=== PATIENT | female | born 1965 | race Caucasian/White ===

== ENCOUNTER 2017-02-03 14:14 | Inpatient (IN) | payer OTHER ==
[2017-02-03] VITALS (7 sets, daily range): BP systolic 83–105; BP diastolic 53–62; PULSE 88–111; RESP 15–18; TEMP 97.7; O2SAT 96–100
[~2017-02-03] VITALS: Ht 157.5 cm; Wt 46.4 kg
[~2017-02-03 14:14] MED LIST: ACYC400T PO; ATEN-102 PO; CALC0.25 PO; LANS30 PO
--- NOTE | 2017-02-03 18:52 | PD ---
HPI Chief Complaint: GI Complaint Time Seen by Provider: 18:33 Travel History International Travel<30 days: No Contact w/Intl Traveler<30days: No Traveled to known affect area: No History of Present Illness HPI 52yo F with PMH of ulcerative colitis/croh's disease and hemophagocytic lymphocytosis histiocytosis syndrome presents to the ED with c/o generalized weakness and hypotension for a few days. States she has not been eating/ drinking well for 2 weeks and has been nauseous. Pt has had total colectomy and has had looser stools than normal. Denies any fever, chest pain, sob, vomiting. Pt had urinary complaints a few days ago and treated herself with over the counter UTI medication and now symptoms has resolved. PFSH Past Medical History Arthritis: No Autoimmune Disease: Yes (LUPUS) Cancer: No Cardiovascular Problems: No Chemotherapy: Yes (2012) Diminished Hearing: No Endocrine: No Gastrointestinal Disorders: Yes GERD: Yes Genitourinary: No Hiatal Hernia: Yes Hypertension: Yes Implanted Vascular Access Dvce: Yes Musculoskeletal: Yes (generalized weakness) Neurologic: No Psychiatric: No Reproductive: No Respiratory: No Renal Failure: Yes Ulcer: Yes ?: Not LMP: MENOPAUSAL Past Surgical History Abdominal Surgery: Yes (colon resection) Cardiac Surgery: Yes Ear Surgery: No Eye Surgery: No Gynecologic Surgery: No Oral Surgery: No Pacemaker: No Thoracic Surgery: Yes Tonsillectomy: Yes Other Surgery: Yes (COLON RESECTION, WITH INTERNAL POUCH) Social History Alcohol Use: No Tobacco Use: No Substance Use: No Allergies-Medications (Allergen,Severity, Reaction): Coded Allergies: Ceclor (Verified Allergy, Severe, Rash, 02/03/17) Floxcin (Verified Allergy, Severe, Confusion, 02/03/17) Sulfa (Verified Allergy, Severe, Nausea/Vomiting, 02/03/17) Reported Meds & Prescriptions Reported Meds & Active Scripts Active Reported Osphena (Ospemifene) 60 Mg Tab 60 Mg PO HS Lisinopril 40 Mg Tab 40 Mg PO HS Calcitriol 0.25 Mcg Cap 0.25 Mcg PO DAILY Atenolol 50 Mg Tab 50 Mg PO HS Review of Systems Except as stated in HPI: all other systems reviewed are Neg Physical Exam Narrative GENERAL: 52yo F flail appearing female. SKIN: Warm and dry. HEAD: Atraumatic. Normocephalic. EYES: Pupils equal and round. No scleral icterus. No injection or drainage. ENT: Throat clear. NECK: Trachea midline. No JVD. CARDIOVASCULAR: Mildly tachycardic. Hypotensive. No murmur appreciated. RESPIRATORY: No accessory muscle use. Clear to auscultation. Breath sounds equal bilaterally. GASTROINTESTINAL: Abdomen soft, non-tender, nondistended. No rebound tenderness or guarding. +Plug to ileum with mild erythema surrounding plug. No purulent discharge or ttp. MUSCULOSKELETAL: No obvious deformities. No clubbing. No cyanosis. No edema. NEUROLOGICAL: Awake and alert. No obvious cranial nerve deficits. Motor grossly within normal limits. Normal speech. PSYCHIATRIC: Appropriate mood and affect; insight and judgment normal. Data Data Last Documented VS Vital Signs Date Time Temp Pulse Resp B/P Pulse Ox O2 Delivery O2 Flow Rate FiO2 02/03/17 20:50 100 16 96/55 98 02/03/17 19:53 Room Air 02/03/17 14:31 97.7 Orders Sodium Chlor 0.9% 1000 Ml Inj (Ns 1000 M (02/03/17 19:00) Complete Blood Count With Diff (02/03/17 18:46) Comprehensive Metabolic Panel (02/03/17 18:46) Magnesium (Mg) (02/03/17 18:46) Electrocardiogram (02/03/17 ) Ondansetron Inj (Zofran Inj) (02/03/17 19:00) Blood Culture (02/03/17 18:46) Lactic Acid Sepsis Protocol (02/03/17 18:46) Urinalysis - C+S If Indicated (02/03/17 18:46) Admit To Inpatient (02/03/17 ) Vital Signs (Adult) Q4H (02/03/17 21:39) Activity Oob With Assistance (02/03/17 21:39) Outside Machinist Apprentice / Telemetry .CONTINUOUS (02/03/17 21:39) Diet Heart Healthy (02/04/17 Breakfast) Sodium Chlor 0.9% 1000 Ml Inj (Ns 1000 M (02/03/17 21:39) Sodium Chloride 0.9% Flush (Ns Flush) (02/03/17 21:45) Sodium Chloride 0.9% Flush (Ns Flush) (02/04/17 09:00) Acetaminophen (Tylenol) (02/03/17 21:45) Ondansetron Inj (Zofran Inj) (02/03/17 21:45) Bisacodyl Supp (Dulcolax Supp) (02/03/17 21:45) Sennosides (Senokot) (02/03/17 21:45) Basic Metabolic Panel (Bmp) (02/04/17 06:00) Complete Blood Count With Diff (02/04/17 06:00) Resp Oxygen Jono C Titrat 1-4 L (02/03/17 ) Naloxone Inj (Narcan Inj) (02/03/17 21:45) Inpatient Certification (02/03/17 ) Admit Order (Ed Use Only) (02/03/17 21:41) Labs Laboratory Tests Test 02/03/17 02/03/17 20:20 21:15 White Blood Count 9.6 TH/MM3 Red Blood Count 3.93 MIL/MM3 Hemoglobin 10.8 GM/DL Hematocrit 32.0 % Mean Corpuscular Volume 81.4 FL Mean Corpuscular Hemoglobin 27.4 PG Mean Corpuscular Hemoglobin 33.6 % Concent Red Cell Distribution Width 16.1 % Platelet Count 205 TH/MM3 Mean Platelet Volume 9.0 FL Neutrophils (%) (Auto) 69.9 % Lymphocytes (%) (Auto) 21.1 % Monocytes (%) (Auto) 6.0 % Eosinophils (%) (Auto) 0.5 % Basophils (%) (Auto) 2.5 % Neutrophils # (Auto) 6.8 TH/MM3 Lymphocytes # (Auto) 2.0 TH/MM3 Monocytes # (Auto) 0.6 TH/MM3 Eosinophils # (Auto) 0.0 TH/MM3 Basophils # (Auto) 0.2 TH/MM3 CBC Comment DIFF FINAL Differential Comment Sodium Level 132 MEQ/L Potassium Level 5.4 MEQ/L Chloride Level 109 MEQ/L Carbon Dioxide Level 11.0 MEQ/L Anion Gap 12 MEQ/L Blood Urea Nitrogen 59 MG/DL Creatinine 2.60 MG/DL Estimat Glomerular Filtration 19 ML/MIN Rate Random Glucose 92 MG/DL Lactic Acid Level 0.9 mmol/L Calcium Level 8.1 MG/DL Magnesium Level 2.3 MG/DL Total Bilirubin 0.8 MG/DL Aspartate Amino Transf 36 U/L (AST/SGOT) Alanine Aminotransferase 44 U/L (ALT/SGPT) Alkaline Phosphatase 95 U/L Total Protein 8.0 GM/DL Albumin 3.2 GM/DL Urine Color STRAW Urine Turbidity CLEAR Urine pH 6.0 Urine Specific [place] 1.010 Urine Protein 30 mg/dL Urine Glucose (UA) NEG mg/dL Urine Ketones NEG mg/dL Urine Occult Blood MOD Urine Nitrite NEG Urine Bilirubin NEG Urine Leukocyte Esterase NEG Urine RBC 3-5 /hpf Urine WBC 0-2 /hpf Urine Squamous Epithelial 6-8 /hpf Cells Urine Bacteria RARE /hpf Microscopic Urinalysis Comment CULT NOT INDICATED MDM Medical Decision Making Medical Screen Exam Complete: Yes Emergency Medical Condition: Yes Interpretation(s) EKG: Sinus tachycardia at 102bpm. Normal axis. Poor baseline. No ST segment elevation or depression. QTc 411ms. Differential Diagnosis Dehydration vs. electrolyte abnormality vs. UTI Narrative Course 52yo F with generalized weakness and hypotension. Pt was initially tachycardic at 111bpm and hypotensive at 87/60 and responded to NS IVF. HR is now 88 and BP is 94/60. Pt has been having stool that is more loose than normal. Labs reviewed, no leukocytosis. BUN/creatinine elevated at 59/2.60. Pt's last creatinine was 1.26 in 2013. Lactic acid is 0.9. UA showed moderate blood. + Squamous cells. Culture not indicated. Will admit pt for JONO and dehydration. Discussed with [facility] hospitalist and admitted to Dr. Cruz. Diagnosis Primary Impression: JONO (acute kidney injury) Additional Impression: Dehydration Admitting Information Admitting Physician Requests: Admit Aubree Riggins DO Feb 03, 2017 18:52
[2017-02-03] MEDS ORDERED: SODIUM CHLOR 0.9% 1000 ML INJ 1,000 ML IV ONE (19:00)
[2017-02-03] MEDS ORDERED: ONDANSETRON HCL 4 MG/2 ML VIAL IV PUSH ONE (19:00)
[2017-02-03] MEDS ORDERED: ATEN50TA PO (19:01)
[2017-02-03] MEDS ORDERED: OSPE1TAB PO (19:01)
[2017-02-03] MEDS ORDERED: CALC0.25 PO (19:01)
[2017-02-03] MEDS ORDERED: LISI40TA PO (19:01)
[2017-02-03 20:44] LABS: AUTOMATED NEUTROPHIL # 6.8 TH/MM3 (1.8-7.7); BASOPHIL # 0.2 TH/MM3 (0-0.2); BASOPHIL % 2.5 % (0.0-2.0); EOSINOPHIL % 0.5 % (0.0-4.0); HEMO FLAGS DIFF FINAL; LYMPH % 21.1 % (9.0-44.0); MEAN CELL VOLUME 81.4 FL (80.0-100.0); MEAN CORPUSCULAR HEMOGLOBIN 27.4 PG (27.0-34.0); MEAN CORPUSCULAR HGB CONC 33.6 % (32.0-36.0); NEUT % 69.9 % (16.0-70.0); PLATELET COUNT 205 TH/MM3 (150-450); RED BLOOD COUNT 3.93 MIL/MM3 (4.00-5.30); RED CELL DISTRIBUTION WIDTH 16.1 % (11.6-17.2); WHITE BLOOD COUNT 9.6 TH/MM3 (4.0-11.0)
[2017-02-03 20:52] LABS: CHLORIDE 109 MEQ/L (98-107); SODIUM (NA) 132 MEQ/L (136-145)
[2017-02-03 20:56] LABS: ANION GAP 12 MEQ/L (5-15); BLOOD UREA NITROGEN 59 MG/DL (7-18); MAGNESIUM 2.3 MG/DL (1.5-2.5)
[2017-02-03 20:59] LABS: ALT (GPT) 44 U/L (10-53); AST (GOT) 36 U/L (15-37); GLOMERULAR FILTRATION RATE 19 ML/MIN (>89)
[2017-02-03 21:01] LABS: TOTAL BILIRUBIN ADULT 0.8 MG/DL (0.2-1.0)
[2017-02-03 21:02] LABS: ALKALINE PHOSPHATASE 95 U/L (45-117)
[2017-02-03 21:07] LABS: POTASSIUM 5.4 MEQ/L (3.5-5.1)
[2017-02-03 21:25] LABS: GLUCOSE,URINE NEG (NEG); KETONE, URINE NEG (NEG); NITRITE,URINE NEG (NEG)
[2017-02-03 21:26] LABS: BLOOD, URINE MOD (NEG)
[2017-02-03 21:31] LABS: URINE COLOR STRAW (YELLW/STRAW)
[2017-02-03 21:32] LABS: BACTERIA, URINE RARE /hpf; COMMENT (UR) CULT NOT INDICATED; CULTURE IF INDICATED CULT NOT INDICATED; WBC, URINE 0-2 /hpf (0-5)
[2017-02-03] MEDS ORDERED: SODIUM CHLOR 0.9% 1000 ML INJ 1,000 ML IV SCH (21:39)
[2017-02-03] MEDS ORDERED: ACETAMINOPHEN 325 MG TAB PO PRN (21:45)
[2017-02-03] MEDS ORDERED: ONDANSETRON HCL 4 MG/2 ML VIAL IVP PRN (21:45)
[2017-02-03] MEDS ORDERED: SODIUM CHLORIDE 0.9% FLUSH 5 ML FLUSH FLUSH PRN (21:45)
[2017-02-03] MEDS ORDERED: NALOXONE HCL 0.4 MG/ML AMP IV PRN (21:45)
[2017-02-03] MEDS ORDERED: SENNOSIDES 8.6 MG TAB PO PRN (21:45)
[2017-02-03] MEDS ORDERED: BISACODYL 10 MG SUPP PR PRN (21:45)
[2017-02-04] VITALS (13 sets, daily range): BP systolic 82–114; BP diastolic 52–73; PULSE 92–101; RESP 16–18; TEMP 96.7–97.9; O2SAT 95–100
[2017-02-04 07:02] LABS: AUTOMATED NEUTROPHIL # 5.2 TH/MM3 (1.8-7.7); BASOPHIL % 0.5 % (0.0-2.0); EOSINOPHIL # 0.1 TH/MM3 (0-0.4); EOSINOPHIL % 1.6 % (0.0-4.0); HEMATOCRIT 25.8 % (35.0-46.0); HEMO FLAGS DIFF FINAL; LYMPH % 20.8 % (9.0-44.0); LYMPHOCYTE # 1.6 TH/MM3 (1.0-4.8); MEAN CELL VOLUME 81.8 FL (80.0-100.0); MEAN CORPUSCULAR HEMOGLOBIN 27.6 PG (27.0-34.0); MEAN CORPUSCULAR HGB CONC 33.7 % (32.0-36.0); NEUT % 69.1 % (16.0-70.0); PLATELET COUNT 180 TH/MM3 (150-450); RED BLOOD COUNT 3.15 MIL/MM3 (4.00-5.30); RED CELL DISTRIBUTION WIDTH 15.8 % (11.6-17.2); WHITE BLOOD COUNT 7.5 TH/MM3 (4.0-11.0)
[2017-02-04 07:25] LABS: BICARBONATE 10.3 MEQ/L (21.0-32.0); POTASSIUM 4.4 MEQ/L (3.5-5.1)
[2017-02-04] MEDS: SODIUM CHLORIDE 0.9% FLUSH 5 ML FLUSH FLUSH SCH ×2 (08:57→22:22)
[2017-02-04] MEDS: HEPARIN SODIUM - SQ 10,000 UNITS/ML VIAL SQ SCH ×2 (08:57→22:21)
[2017-02-04] MEDS: CALCITRIOL 0.25 MCG CAP PO SCH (11:15)
[2017-02-04] MEDS: LACTATED RING IV SCH ×2 (11:15→21:00)
[2017-02-04] MEDS: DEXTROSE 5% IV SCH ×2 (11:15→21:00)
[2017-02-04] MEDS: SODIUM BICARBONATE IV SCH ×2 (11:15→21:00)
--- NOTE | 2017-02-04 15:02 | HHI.HP ---
HPI Service [facility] Primary Care Physician Benigno Bryan DO Admission Diagnosis Dehydration, JONO Diagnoses: Travel History International Travel<30 Days: No Contact w/Intl Traveler <30 Da: No Traveled to Known Affected Are: No History of Present Illness This is a 52-year-old female who has had a history of nonspecific chronic inflammatory bowel disease, possible ulcerative colitis versus Crohn's disease. She had a colectomy/proctectomy with a pouch formation. She uses a catheter to empty stool from small opening in her anterior abdominal wall. Also has a history hemophagocytic lymphocytosis histiocytosis syndrome, and of chronic kidney disease. She sees Dr. Qiu. She sees a marketing forecaster in [facility]. She came into the emergency department at [facility] with few days of generalized weakness. In fact her symptoms span to over 2 weeks. She is progressively weaker, lightheaded when standing, complaining of constant nausea, and her stool is more liquid than usual. She has not been eating or drinking considerable amounts for the last 2 weeks. She recently has some dysuria with vaginal discharge. She treated herself with over -the-counter Monistat and some pill that turned her urine orange. She was found to have an elevated creatinine of 2.6 from a baseline of 1.3 in 2014. She was also was found in sinus tachycardia. Her blood pressure was low. She was given IV fluids and felt better afterwards. She was seen by the undersigned earlier today in room 8303. She is alert oriented. She still feels weak. No pain. She says that she has a chronic allergy cough. No fever. She no longer had any dysuria or vaginal discharge. 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 difficile colitis in April 2013 Past Surgical History Colectomy/proctectomy Bowel pouch Reported Medications Reported Meds & Active Scripts Active Reported Osphena (Ospemifene) 60 Mg Tab 60 Mg PO HS Lisinopril 40 Mg Tab 40 Mg PO HS Calcitriol 0.25 Mcg Cap 0.25 Mcg PO DAILY Atenolol 50 Mg Tab 50 Mg PO HS Allergies: Coded Allergies: Ceclor (Verified Allergy, Severe, Rash, 02/03/17) Floxcin (Verified Allergy, Severe, Confusion, 02/03/17) Sulfa (Verified Allergy, Severe, Nausea/Vomiting, 02/03/17) Family History Father of pulmonary embolism, he also had heart disease and diabetes Mother is alive and she has diabetes and hypothyroidism 2 brothers of cancer, one of lymphoma followed by leukemia, and the other one with a cancer of unclear primary Social History No smoking, negative alcohol, no illicit drug use Physical Exam Vital Signs Vital Signs Date Time Temp Pulse Resp B/P Pulse Ox O2 Delivery O2 Flow Rate FiO2 02/04/17 12:00 97.4 93 16 94/60 100 02/04/17 10:22 97 21 02/04/17 09:45 96.7 95 16 96/67 100 02/04/17 09:21 102 16 104/56 95 02/04/17 07:30 16 02/04/17 07:30 97.9 100 16 82/56 100 Room Air 02/04/17 06:29 92 18 101/53 99 Room Air 02/04/17 05:49 92 18 99/56 99 Room Air 02/04/17 04:42 96 18 91/52 99 Room Air 02/04/17 02:55 97 18 93/56 99 Room Air 02/04/17 01:49 92 18 94/62 100 Room Air 02/03/17 23:55 98 18 105/62 100 Room Air 02/03/17 21:51 97 02/03/17 21:50 96 16 96/56 98 Room Air 02/03/17 20:50 100 16 96/55 98 02/03/17 19:53 18 02/03/17 19:53 88 18 94/60 97 Room Air 02/03/17 19:05 107 15 83/53 97 Physical Exam GENERAL: This is a well-nourished, well-developed patient, in no apparent distress. SKIN: No rashes, ecchymoses or lesions. Cool and dry. HEAD: Atraumatic. Normocephalic. No temporal or scalp tenderness. EYES: Pupils equal round and reactive. Extraocular motions intact. No scleral icterus. No injection or drainage. ENT: Nose without bleeding, purulent drainage or septal hematoma. Throat without erythema, tonsillar hypertrophy or exudate. Uvula midline. Airway patent. NECK: Trachea midline. No JVD or lymphadenopathy. Supple, nontender, no meningeal signs. CARDIOVASCULAR: Regular rate and rhythm without murmurs, gallops, or rubs. RESPIRATORY: Clear to auscultation. Breath sounds equal bilaterally. No wheezes , rales, or rhonchi. GASTROINTESTINAL: Abdomen soft, non-tender, nondistended. No hepato-splenomegaly , or palpable masses. No guarding. MUSCULOSKELETAL: Extremities without clubbing, cyanosis, or edema. No joint tenderness, effusion, or edema noted. No calf tenderness. Negative Homans sign bilaterally. NEUROLOGICAL: Awake and alert. Cranial nerves II through XII intact. Motor and sensory grossly within normal limits. Five out of 5 muscle strength in all muscle groups. Normal speech. Laboratory Laboratory Tests Test 02/03/17 02/03/17 02/04/17 20:20 21:15 06:40 White Blood Count 9.6 7.5 Red Blood Count 3.93 3.15 Hemoglobin 10.8 8.7 Hematocrit 32.0 25.8 Mean Corpuscular Volume 81.4 81.8 Mean Corpuscular Hemoglobin 27.4 27.6 Mean Corpuscular Hemoglobin 33.6 33.7 Concent Red Cell Distribution Width 16.1 15.8 Platelet Count 205 180 Mean Platelet Volume 9.0 8.7 Neutrophils (%) (Auto) 69.9 69.1 Lymphocytes (%) (Auto) 21.1 20.8 Monocytes (%) (Auto) 6.0 8.0 Eosinophils (%) (Auto) 0.5 1.6 Basophils (%) (Auto) 2.5 0.5 Neutrophils # (Auto) 6.8 5.2 Lymphocytes # (Auto) 2.0 1.6 Monocytes # (Auto) 0.6 0.6 Eosinophils # (Auto) 0.0 0.1 Basophils # (Auto) 0.2 0.0 CBC Comment DIFF FINAL DIFF FINAL Differential Comment Sodium Level 132 139 Potassium Level 5.4 4.4 Chloride Level 109 117 Carbon Dioxide Level 11.0 10.3 Anion Gap 12 12 Blood Urea Nitrogen 59 50 Creatinine 2.60 2.10 Estimat Glomerular Filtration 19 25 Rate Random Glucose 92 92 Lactic Acid Level 0.9 Calcium Level 8.1 7.6 Magnesium Level 2.3 Total Bilirubin 0.8 Aspartate Amino Transf 36 (AST/SGOT) Alanine Aminotransferase 44 (ALT/SGPT) Alkaline Phosphatase 95 Total Protein 8.0 Albumin 3.2 Urine Color STRAW Urine Turbidity CLEAR Urine pH 6.0 Urine Specific [place] 1.010 Urine Protein 30 Urine Glucose (UA) NEG Urine Ketones NEG Urine Occult Blood MOD Urine Nitrite NEG Urine Bilirubin NEG Urine Leukocyte Esterase NEG Urine RBC 3-5 Urine WBC 0-2 Urine Squamous Epithelial 6-8 Cells Urine Bacteria RARE Microscopic Urinalysis Comment CULT NOT INDICATED Date/Time Procedure Status Source Growth 02/04/17 11:11 Received Stool Stool Pending 02/03/17 20:26 Aerobic Blood Culture - Preliminary Resulted Blood Peripheral NO GROWTH IN 1 DAY 02/03/17 20:26 Anaerobic Blood Culture - Final Resulted Blood Peripheral QNS - SEE AEROBE REPORT Result Diagram: 02/04/17 0640 02/04/17 0640 Assessment and Plan Assessment and Plan Assessment Acute kidney injury on chronic kidney disease Dehydration Hypotension Weight loss Management Intravenous fluids Follow renal indices Consult GI for weight loss Follow electrolytes and replace as needed May need follow-up with Dr. Marcos regarding histiocytosis X Rule out C. difficile recurrence Contact isolation until all monitors resulted DVT prophylaxis Discussed with patient Discussed with nurse 40 minutes Den Moore MD Feb 04, 2017 15:02
[2017-02-04 18:42] LABS: C. DIFF EPI 027 PRESUMPTIVE NEGATIVE (NEGATIVE); C. DIFF TOXIN PCR NEGATIVE (NEGATIVE)
--- NOTE | 2017-02-04 20:00 | MB ---
cc: MALLORY SWIFT M.D. DATE OF CONSULTATION: 02/04/2017 DATE OF : [address] Cruz. REASON FOR REFERRAL Anemia, general weakness and dehydration, history of inflammatory bowel disease. Thank you for the consultation. HISTORY OF PRESENT ILLNESS A 52-year-old lady who has a history of Crohn's disease versus colitis. Apparently, initially she was diagnosed with ulcerative colitis. She had a total colectomy seven years ago with a pouch that she accesses for stool and the patient after that developed fistulas, and she was told that she may have Crohn's disease instead of ulcerative colitis. She had a [employer] test and she was told that the results were undetermined as far as Crohn's disease versus colitis. She used to take Imuran until about four years ago, she stopped taking it because her doctor told her that she might be doing okay and since then she had a few episodes of abdominal discomfort and weakness. She had upper endoscopies and a pouchoscopy but she did not have that for at least five years. She gets her care in [place], [place] and she does not have a local heater mechanic. The patient was in the emergency room with weakness and she was discharged, she came back, she is complaining of a little bit more loose stool from the pouch and found to be anemic. She stated that she was dehydrated even though she was not having any vomiting. She has some nausea and she was rehydrated yesterday and today and her creatinine was up to 0.6 with her baseline being at 1.3 on previous encounter. She had hypertension. Currently feels well, no significant complaint and she stated she thinks her loose bowel is related to rehydration. PAST MEDICAL HISTORY Significant for - 1. Inflammatory bowel disease, possible Crohn's disease versus ulcerative colitis. 2. Colectomy with ileostomy pouch created. 3. She also was diagnosed by Dr. Fransico Marcos with histiocytosis X. 4. Malnutrition. 5. Chronic weight loss. 6. Chronic low blood pressure. 7. Gallbladder disease. 8. Reflux symptoms. 9. Questionable hepatitis. 10. C. Diff, multiple episodes. 11. Questionable liver disease. 12. Chronic kidney disease. MEDICATIONS Reviewed in the chart. ALLERGIES CECLOR. FLOXACIN. SULFA. SOCIAL HISTORY No tobacco, drug or alcohol. FAMILY HISTORY Significant for pulmonary embolism, heart disease, diabetes, lymphoma. PHYSICAL EXAMINATION GENERAL: Alert, oriented, no acute distress at this time. VITAL SIGNS: Vital signs stable. HEENT: Pupils round and reactive to light. NECK: Supple. CHEST: Clear to auscultation and precaution. CARDIAC: Regular rate and rhythm. No murmur or gallop. ABDOMEN: Soft, nondistended, nontender. The site of the pouch looks normal. NEUROLOGIC: Intact without any limitation of movements or atrophy. PSYCHOLOGICAL: Appropriate. LABORATORY DATA White count 7.5, hemoglobin 8.7, down from 10.8 yesterday, platelets 180. Liver function tests are completely normal. BUN 50, creatinine 2.1. C. diff is pending. ASSESSMENT AND PLAN A 52-year-old lady who has possible inflammatory bowel disease, could be Crohn's disease, she is not taking any medication, she has some dehydration, could be viral illness. I recommended to her doing upper endoscopy and possible scoping of the pouch but the patient declined any procedure, she stated she does not want to have it done. We will wait for the C. Diff results. We will continue hydration. I emphasized to her the importance of the procedures to assess if she has active inflammatory bowel disease that requires treatment, but at this time she declined any procedure. We will continue supportive care. We will check her hemoglobin. If she drops her hemoglobin some more, we might need to do transfusion, and if she changes her mind we will be happy to do these procedures, otherwise we will continue supportive care. MD ANITA Iglesias/LEIF /6:12 PM /7:16 PM
[2017-02-04] MEDS ORDERED: OSPEMIFENE 60 MG PO SCH (21:00)
[2017-02-04] MEDS: ATENOLOL 50 MG TAB PO SCH (22:21)
[2017-02-05] VITALS (8 sets, daily range): BP systolic 97–121; BP diastolic 62–76; PULSE 87–116; RESP 16–20; TEMP 96–98.9; O2SAT 98–100
[2017-02-05 00:24] LABS: BLOOD, URINE TRACE (NEG); GLUCOSE,URINE NEG (NEG); KETONE, URINE NEG (NEG); NITRITE,URINE NEG (NEG); PH, URINE 5.5 (5.0-8.5)
[2017-02-05 00:47] LABS: URINE COLOR YELLOW (YELLW/STRAW)
[2017-02-05 00:48] LABS: BACTERIA, URINE MANY /hpf; MUCUS URINE OCC /lpf (OCC); SQUAMOUS EPITHELIAL CELL URINE 0-5 /hpf (0-5)
[2017-02-05 00:49] LABS: COMMENT (UR) CULTURE INDICATED; CULTURE IF INDICATED CULTURE INDICATED; HYALINE CAST, URINE 0-2 /lpf (RARE); RBC, URINE 0-3 /hpf (0-3); WBC, URINE 0-2 /hpf (0-5)
[2017-02-05] MEDS: SODIUM BICARBONATE IV SCH ×2 (04:56→17:05)
[2017-02-05] MEDS: DEXTROSE 5% IV SCH ×2 (04:56→17:05)
[2017-02-05] MEDS: LACTATED RING IV SCH ×2 (04:56→17:05)
[2017-02-05 06:31] LABS: AUTOMATED NEUTROPHIL # 4.1 TH/MM3 (1.8-7.7); BASOPHIL % 0.3 % (0.0-2.0); EOSINOPHIL # 0.1 TH/MM3 (0-0.4); EOSINOPHIL % 1.3 % (0.0-4.0); HEMATOCRIT 27.7 % (35.0-46.0); HEMO FLAGS DIFF FINAL; LYMPH % 32.3 % (9.0-44.0); LYMPHOCYTE # 2.3 TH/MM3 (1.0-4.8); MEAN CELL VOLUME 80.9 FL (80.0-100.0); MEAN CORPUSCULAR HEMOGLOBIN 26.8 PG (27.0-34.0); MEAN CORPUSCULAR HGB CONC 33.1 % (32.0-36.0); MONO % 8.1 % (0.0-8.0); PLATELET COUNT 209 TH/MM3 (150-450); RED BLOOD COUNT 3.42 MIL/MM3 (4.00-5.30); WHITE BLOOD COUNT 7.1 TH/MM3 (4.0-11.0)
[2017-02-05 06:51] LABS: BICARBONATE 16.5 MEQ/L (21.0-32.0); INDIRECT BILIRUBIN 0.5 MG/DL (0.0-0.8); POTASSIUM 3.6 MEQ/L (3.5-5.1); TOTAL BILIRUBIN ADULT 0.6 MG/DL (0.2-1.0)
--- NOTE | 2017-02-05 07:59 | EKG ---
Date Performed: 02/03/2017 Time Performed: 20:36:36 PTAGE: 52 years EKG: Sinus tachycardia Compared to the PREVIOUS TRACING sinus rate is slower Normal ECG except for rate PREVIOUS TRACIN04/17 00.16 DOCTOR: Eros Hernandez Interpretating Date/Time 02/05/2017 07:57:45
[2017-02-05] MEDS: SODIUM CHLORIDE 0.9% FLUSH 5 ML FLUSH FLUSH SCH ×2 (09:00→20:58)
[2017-02-05] MEDS: HEPARIN SODIUM - SQ 10,000 UNITS/ML VIAL SQ SCH ×2 (09:04→21:01)
[2017-02-05] MEDS: CALCITRIOL 0.25 MCG CAP PO SCH (09:04)
--- NOTE | 2017-02-05 15:41 | HHI.PR ---
Subjective History of Present Illness feels better less dizziness / less weakness appetite is ok No abd pain No fever or chills offers no other c/o Vitals/Results Intake & Output 02/04/17 02/04/17 02/05/17 15:00 23:00 07:00 Intake Total 1905 ml 810 ml 1072 ml Output Total 400 ml 600 ml 225 ml Balance 1505 ml 210 ml 847 ml Intake Oral 905 ml 480 ml 280 ml IV Total 1000 ml 330 ml 792 ml Output Urine Total 400 ml 600 ml 225 ml # Voids 0 # Bowel Movements 0 0 Vital Signs Vital Signs Date Time Temp Pulse Resp B/P Pulse Ox O2 Delivery O2 Flow Rate FiO2 02/05/17 12:00 96.0 96 16 101/70 99 02/05/17 08:45 98 21 02/05/17 08:00 97.3 87 16 106/76 100 02/05/17 04:00 97.0 94 16 97/64 99 02/05/17 00:00 98.9 112 16 109/66 99 02/04/17 20:00 97.5 101 18 110/73 100 02/04/17 19:21 95 21 02/04/17 16:00 97.2 96 18 114/67 95 CBC/BMP: 02/05/17 0456 02/05/17 0456 Lab Results Laboratory Tests Test 02/05/17 02/05/17 00:00 04:56 Urine Color YELLOW Urine Turbidity SLIGHT Urine pH 5.5 Urine Specific [place] 1.011 Urine Protein TRACE mg/dL Urine Glucose (UA) NEG mg/dL Urine Ketones NEG mg/dL Urine Occult Blood TRACE Urine Nitrite NEG Urine Bilirubin NEG Urine Leukocyte Esterase NEG Urine RBC 0-3 /hpf Urine WBC 0-2 /hpf Urine Squamous Epithelial 0-5 /hpf Cells Urine Bacteria MANY /hpf Urine Hyaline Casts 0-2 /lpf Urine Mucus OCC /lpf Microscopic Urinalysis Comment CULTURE INDICATED White Blood Count 7.1 TH/MM3 Red Blood Count 3.42 MIL/MM3 Hemoglobin 9.1 GM/DL Hematocrit 27.7 % Mean Corpuscular Volume 80.9 FL Mean Corpuscular Hemoglobin 26.8 PG Mean Corpuscular Hemoglobin 33.1 % Concent Red Cell Distribution Width 16.0 % Platelet Count 209 TH/MM3 Mean Platelet Volume 9.0 FL Neutrophils (%) (Auto) 58.0 % Lymphocytes (%) (Auto) 32.3 % Monocytes (%) (Auto) 8.1 % Eosinophils (%) (Auto) 1.3 % Basophils (%) (Auto) 0.3 % Neutrophils # (Auto) 4.1 TH/MM3 Lymphocytes # (Auto) 2.3 TH/MM3 Monocytes # (Auto) 0.6 TH/MM3 Eosinophils # (Auto) 0.1 TH/MM3 Basophils # (Auto) 0.0 TH/MM3 CBC Comment DIFF FINAL Differential Comment Sodium Level 141 MEQ/L Potassium Level 3.6 MEQ/L Chloride Level 113 MEQ/L Carbon Dioxide Level 16.5 MEQ/L Anion Gap 12 MEQ/L Blood Urea Nitrogen 32 MG/DL Creatinine 1.70 MG/DL Estimat Glomerular Filtration 31 ML/MIN Rate Random Glucose 84 MG/DL Calcium Level 8.2 MG/DL Total Bilirubin 0.6 MG/DL Direct Bilirubin 0.1 MG/DL Indirect Bilirubin 0.5 MG/DL Aspartate Amino Transf 25 U/L (AST/SGOT) Alanine Aminotransferase 35 U/L (ALT/SGPT) Alkaline Phosphatase 77 U/L Total Protein 7.0 GM/DL Albumin 2.9 GM/DL Microbiology Microbiology 02/05/17 Urine Culture, Received Pending Physical Exam General General Appearance: No Acute Distress, Comfortable, Malnourished Appearance Remarks thin built frail appearing female appears older than stated age Eyes Eye Exam: Pupils Equal, Sclera White, Extraocular Movement Intact Ears & Nose Ears & Nose Exam: Nasal Mucosa [place] Throat Throat Exam: Oral Mucosa [place] & Moist Neck Neck Exam: Neck Supple, Trachea Midline Pulmonary Resp Exam: Clear Bilaterally, Breath Sounds Equal, No Distress Cardiology CV Exam: Regular, Normal Sinus Rhythm Gastrointestinal/Abdomen GI Exam: Soft, Non-Tender, Bowel Sounds Present GI Remarks R sided abd stoma Integumentary Skin Exam: Warm, Dry Extremeties Extremities Exam: No Edema, Pedal Pulses Palpable Neurologic Neuro Exam: Alert, Awake, Oriented, Speech Clear, Moving All Extremities Psychiatric Psych Exam: Appropriate Responses PUD Prophylasis PUD Prophylaxis: Protonix Assessment/Plan Assessment/Plan ASSESSMENT , Dehydration . JONO/ CKD . Metabolic Acidosis . Inflammatory bowel disease, possible ulcerative colitis.s/p Colectomy with ileostomy pouch created. . Hx hemophagocytic Lymphohistiocytosis s/p chemo /XRT . Ch diarrhea . Malnutrition. . Chronic weight loss. . Chronic low blood pressure. . Gallbladder disease. . Reflux symptoms. PLAN IVF , cont hydration sodium bicarbonate GI input appreciated , pt refused EGD encourage po intake stool for c diff neg renal function is improving BB pepcid sq heparin for DVT prophylaxis ambulate am labs ss for d/c planning will f/u Jorgito Cruz MD Feb 05, 2017 15:41
--- NOTE | 2017-02-05 20:53 | HHI.GIFU ---
Subjective Remarks Comfortable in bed denies any pain denies any bleeding feeling better Objective Vitals I&O Vital Signs Date Time Temp Pulse Resp B/P Pulse Ox O2 Delivery O2 Flow Rate FiO2 02/05/17 20:00 98.1 116 20 121/72 99 02/05/17 19:28 100 21 02/05/17 16:00 96.4 96 16 110/62 100 02/05/17 12:00 96.0 96 16 101/70 99 02/05/17 08:45 98 21 02/05/17 08:00 97.3 87 16 106/76 100 02/05/17 04:00 97.0 94 16 97/64 99 02/05/17 00:00 98.9 112 16 109/66 99 I/O 02/04/17 02/04/17 02/04/17 02/05/17 02/05/17 02/05/17 07:00 15:00 23:00 07:00 15:00 23:00 Intake Total 1905 ml 810 ml 1072 ml 1200 ml Output Total 400 ml 600 ml 225 ml Balance 1505 ml 210 ml 847 ml 1200 ml Intake Oral 905 ml 480 ml 280 ml 1200 ml IV Total 1000 ml 330 ml 792 ml Output Urine Total 400 ml 600 ml 225 ml # Voids 0 5 # Bowel Movements 0 0 5 Laboratory Laboratory Tests Test 02/05/17 02/05/17 00:00 04:56 Urine Color YELLOW Urine Turbidity SLIGHT Urine pH 5.5 Urine Specific [place] 1.011 Urine Protein TRACE Urine Glucose (UA) NEG Urine Ketones NEG Urine Occult Blood TRACE Urine Nitrite NEG Urine Bilirubin NEG Urine Leukocyte Esterase NEG Urine RBC 0-3 Urine WBC 0-2 Urine Squamous Epithelial 0-5 Cells Urine Bacteria MANY Urine Hyaline Casts 0-2 Urine Mucus OCC Microscopic Urinalysis Comment CULTURE INDICATED White Blood Count 7.1 Red Blood Count 3.42 Hemoglobin 9.1 Hematocrit 27.7 Mean Corpuscular Volume 80.9 Mean Corpuscular Hemoglobin 26.8 Mean Corpuscular Hemoglobin 33.1 Concent Red Cell Distribution Width 16.0 Platelet Count 209 Mean Platelet Volume 9.0 Neutrophils (%) (Auto) 58.0 Lymphocytes (%) (Auto) 32.3 Monocytes (%) (Auto) 8.1 Eosinophils (%) (Auto) 1.3 Basophils (%) (Auto) 0.3 Neutrophils # (Auto) 4.1 Lymphocytes # (Auto) 2.3 Monocytes # (Auto) 0.6 Eosinophils # (Auto) 0.1 Basophils # (Auto) 0.0 CBC Comment DIFF FINAL Differential Comment Sodium Level 141 Potassium Level 3.6 Chloride Level 113 Carbon Dioxide Level 16.5 Anion Gap 12 Blood Urea Nitrogen 32 Creatinine 1.70 Estimat Glomerular Filtration 31 Rate Random Glucose 84 Calcium Level 8.2 Total Bilirubin 0.6 Direct Bilirubin 0.1 Indirect Bilirubin 0.5 Aspartate Amino Transf 25 (AST/SGOT) Alanine Aminotransferase 35 (ALT/SGPT) Alkaline Phosphatase 77 Total Protein 7.0 Albumin 2.9 Date/Time Procedure Status Source Growth 02/05/17 00:00 Urine Culture Received Urine Clean Catch Pending 02/04/17 11:11 - Final Complete Stool Stool NO ENTERIC PATHOGENS DETECTED BY PCR... 02/03/17 20:26 Aerobic Blood Culture - Preliminary Resulted Blood Peripheral NO GROWTH IN 2 DAYS 02/03/17 20:26 Anaerobic Blood Culture - Final Resulted Blood Peripheral QNS - SEE AEROBE REPORT Physical Exam HEENT: Normocephalic and throat is clear NECK: Neck is supple CHEST: Chest is clear to auscultation and percussion. CARDIAC: Regular rate and rhythm with no murmur gallop or rubs. ABDOMEN: Soft, nondistended, nontender; no hepatosplenomegaly; bowel sounds are present in all four quadrants. EXTREMITIES: No clubbing, cyanosis, or edema. SKIN: Normal; no rash; no jaundice. LEAD COATER: No focal deficits; alert and oriented times three. Assessment and Plan Plan Anemia multifactorial probably relating to chronic renal insufficiency, blood disorder, possibly short bowel, and most importantly malnutrition apparently the patient is an erratic eater and does not eat good and does not eat balanced meals She is over the fatigue that brought her in She denies any bleeding Bowel habits are stable and have not changed Patient advised to improve her intake and nutrition and to take nutritional supplements and multivitamins with minerals and iron supplementation Not much to add from a GI perspective at this point patient follow-up post discharge We will sign off Mayo Santana MD Feb 05, 2017 20:53
[2017-02-05] MEDS: ATENOLOL 50 MG TAB PO SCH (21:00)
[2017-02-06] VITALS: BP 95/60; PULSE 83; RESP 20; TEMP 98.4; O2SAT 100
[2017-02-06 04:00] VITALS: BP 94/54; PULSE 79; RESP 20; TEMP 96.7; O2SAT 99
[2017-02-06] MEDS: DEXTROSE 5% IV SCH (05:03)
[2017-02-06] MEDS: LACTATED RING IV SCH (05:03)
[2017-02-06] MEDS: SODIUM BICARBONATE IV SCH (05:03)
[2017-02-06 06:07] LABS: HEMATOCRIT 24.7 % (35.0-46.0); MEAN CELL VOLUME 82.3 FL (80.0-100.0); MEAN CORPUSCULAR HEMOGLOBIN 27.9 PG (27.0-34.0); MEAN CORPUSCULAR HGB CONC 33.8 % (32.0-36.0); PLATELET COUNT 189 TH/MM3 (150-450); RED CELL DISTRIBUTION WIDTH 16.9 % (11.6-17.2); REVIEW FLAG FINAL; WHITE BLOOD COUNT 5.9 TH/MM3 (4.0-11.0)
[2017-02-06 06:36] LABS: BICARBONATE 28.9 MEQ/L (21.0-32.0); POTASSIUM 3.9 MEQ/L (3.5-5.1)
[2017-02-06 08:00] VITALS: BP 100/65; PULSE 64; RESP 18; TEMP 98; O2SAT 95; O2SAT 97
--- NOTE | 2017-02-06 08:35 | HHI.PR ---
Subjective History of Present Illness feels much better / eager to go home No ,more dizziness or weakness appetite is ok No abd pain No fever or chills offers no other c/o Vitals/Results Intake & Output 02/05/17 02/05/17 02/06/17 15:00 23:00 07:00 Intake Total 1200 ml 800 ml 480 ml Output Total 500 ml Balance 1200 ml 800 ml -20 ml Intake Oral 1200 ml 480 ml IV Total 800 ml Output Urine Total 500 ml # Voids 5 # Bowel Movements 5 0 Vital Signs Vital Signs Date Time Temp Pulse Resp B/P Pulse Ox O2 Delivery O2 Flow Rate FiO2 02/06/17 08:00 98.0 64 18 100/65 95 02/06/17 04:00 96.7 79 20 94/54 99 02/06/17 00:00 98.4 83 20 95/60 100 02/05/17 20:00 98.1 116 20 121/72 99 02/05/17 19:28 100 21 02/05/17 16:00 96.4 96 16 110/62 100 02/05/17 12:00 96.0 96 16 101/70 99 02/05/17 08:45 98 21 CBC/BMP: 02/06/17 0540 02/06/17 0540 Lab Results Laboratory Tests Test 02/06/17 05:40 White Blood Count 5.9 TH/MM3 Red Blood Count 3.00 MIL/MM3 Hemoglobin 8.4 GM/DL Hematocrit 24.7 % Mean Corpuscular Volume 82.3 FL Mean Corpuscular Hemoglobin 27.9 PG Mean Corpuscular Hemoglobin 33.8 % Concent Red Cell Distribution Width 16.9 % Platelet Count 189 TH/MM3 Mean Platelet Volume 8.4 FL Sodium Level 138 MEQ/L Potassium Level 3.9 MEQ/L Chloride Level 102 MEQ/L Carbon Dioxide Level 28.9 MEQ/L Anion Gap 7 MEQ/L Blood Urea Nitrogen 17 MG/DL Creatinine 1.50 MG/DL Estimat Glomerular Filtration 36 ML/MIN Rate Random Glucose 96 MG/DL Calcium Level 7.5 MG/DL Physical Exam General General Appearance: No Acute Distress, Comfortable, Malnourished Appearance Remarks thin built frail appearing female appears older than stated age Eyes Eye Exam: Pupils Equal, Sclera White, Extraocular Movement Intact Ears & Nose Ears & Nose Exam: Nasal Mucosa [place] Throat Throat Exam: Oral Mucosa [place] & Moist Neck Neck Exam: Neck Supple, Trachea Midline Pulmonary Resp Exam: Clear Bilaterally, Breath Sounds Equal, No Distress Cardiology CV Exam: Regular, Normal Sinus Rhythm Gastrointestinal/Abdomen GI Exam: Soft, Non-Tender, Bowel Sounds Present GI Remarks R sided abd stoma Integumentary Skin Exam: Warm, Dry Extremeties Extremities Exam: No Edema, Pedal Pulses Palpable Neurologic Neuro Exam: Alert, Awake, Oriented, Speech Clear, Moving All Extremities Psychiatric Psych Exam: Appropriate Responses PUD Prophylasis PUD Prophylaxis: Protonix Assessment/Plan Assessment/Plan ASSESSMENT , s/p Dehydration . s/p ARF / CKD acute comp d/t dehydration/pre renal azotemia . Acute Metabolic Acidosis d/t ch diarrhea . Hx Inflammatory bowel disease, possible ulcerative colitis.s/p Colectomy with ileostomy pouch created. . Hx hemophagocytic Lymphohistiocytosis s/p chemo /XRT . Ch diarrhea . protein calorie Malnutrition. . Chronic weight loss. . Gallbladder disease. . Reflux symptoms. . Anemia , likley anemia of ch disease, drip in H/H d/t rehydration PLAN d/c IVF , chnage to po sodium bicarbonate GI input appreciated , pt refused EGD encourage po intake stool for c diff neg renal function is improving BB pepcid sq heparin for DVT prophylaxis cleared by GI for d/c \ f/u pcp \f/u GI see Orders Jorgito Cruz MD Feb 06, 2017 08:35
[2017-02-06] MEDS: CALCITRIOL 0.25 MCG CAP PO SCH (08:48)
[2017-02-06] MEDS: SODIUM CHLORIDE 0.9% FLUSH 5 ML FLUSH FLUSH SCH (08:48)
[2017-02-06] MEDS: HEPARIN SODIUM - SQ 10,000 UNITS/ML VIAL SQ SCH (08:49)
[2017-02-06] MEDS ORDERED: FAMOTIDINE 20 MG TAB PO SCH ×2 (09:00→21:00)
[2017-02-06] MEDS ORDERED: SODI325T PO (09:29)
[2017-02-06] MEDS ORDERED: FERR325T PO (09:29)
--- NOTE | 2017-04-06 14:45 | HHI.DS ---
Discharge Summary Admission Date Feb 03, 2017 at 21:41 Discharge Date: Feb 06, 2017 Admitting Diagnosis Dehydration, JONO (1) Dehydration (2) JONO (acute kidney injury) (3) Hx of inflammatory bowel disease (4) Chronic diarrhea (5) Iron deficiency anemia (6) Protein calorie malnutrition Hospital Course This is a 52-year-old female who has had a history of nonspecific chronic inflammatory bowel disease, possible ulcerative colitis versus Crohn's disease. She had a colectomy/proctectomy with a pouch formation. She uses a catheter to empty stool from small opening in her anterior abdominal wall. Also has a history hemophagocytic lymphocytosis histiocytosis syndrome, and of chronic kidney disease. She sees Dr. Qiu. She sees a rn behavioral health in [facility]. She came into the emergency department at [facility] with few days of generalized weakness. In fact her symptoms span to over 2 weeks. She was progressively weaker, lightheaded when standing, complaining of constant nausea, and her stool is more liquid than usual. She had not been eating or drinking considerable amounts for the last 2 weeks. She recently has some dysuria with vaginal discharge. She treated herself with over -the-counter Monistat and some pill that turned her urine orange. She was found to have an elevated creatinine of 2.6 from a baseline of 1.3 in 2013. She was also was found in sinus tachycardia. Her blood pressure was low. She was given IV fluids and felt better afterwards. She was alert oriented. She still felt weak. No pain. She says that she has a chronic allergy cough. No fever. She no longer had any dysuria or vaginal discharge. Pt. was admitted: , s/p Dehydration . s/p ARF / CKD acute comp d/t dehydration/pre renal azotemia . Acute Metabolic Acidosis d/t ch diarrhea . Hx Inflammatory bowel disease, possible ulcerative colitis.s/p Colectomy with ileostomy pouch created. . Hx hemophagocytic Lymphohistiocytosis s/p chemo /XRT . Ch diarrhea . protein calorie Malnutrition. . Chronic weight loss. . Gallbladder disease. . Reflux symptoms. . Anemia , likely anemia of ch disease, drip in H/H d/t rehydration During the course of the hospitalization, the following took place: Patient was put on IV fluids, electrolytes were monitored and corrected Gastroenterology was consulted Patient was recommended endoscopy to evaluate pouch Stools were checked, negative for C. difficile Was put on sodium bicarbonate, acidosis improved Renal function improved Home medications were initiated put on Pepcid for GI prophylaxis and sq heparin for DVT prophylaxis HH was monitored closely, was anemic. Per GI, Anemia multifactorial probably relating to chronic renal insufficiency, blood disorder, possibly short bowel, and most importantly malnutrition apparently the patient was an erratic eater and does not eat good and does not eat balanced meals. Patient advised about proper intake and nutrition, take nutritional supplements and by mouth iron. Was started on PO iron GI signed off Patient's condition improved, she was well hydrated and tolerating by mouth intake well Patient was cleared for discharge Pt Condition on Discharge: Stable Discharge Disposition: Discharge Home Discharge Instructions DIET: Follow Instructions for: As Tolerated, No Restrictions Additional Diet Instructions: eat frequent meals Fluid Restrictions: none Activities you can perform: Regular-No Restrictions Other Activity Instructions: drink more fluids Follow up Referrals: Gastroenterology - 2 Weeks PCP Follow-up - 1 Week New Medications: Ferrous Sulfate (Ferrous Sulfate) 325 Mg Tab 325 MG PO DAILY Nutritional Supplement #30 Ref 0 TAB Sodium Bicarbonate (Sodium Bicarbonate) 325 Mg Tab 325 MG PO BIDPC acidosis #60 Ref 0 TAB Continued Medications: Atenolol (Atenolol) 50 Mg Tab 50 MG PO HS Blood Pressure Management Ref 0 TAB Calcitriol (Calcitriol) 0.25 Mcg Cap 0.25 MCG PO DAILY Calcium Supplement #30 Ref 0 CAP Ospemifene (Osphena) 60 Mg Tab 60 MG PO HS Discontinued Medications: Lisinopril (Lisinopril) 40 Mg Tab 40 MG PO HS Blood Pressure Management #30 Ref 0 TAB Jo-Ann Fontenot April 06, 2017 14:44
== END 2017-02-06 11:17 | disposition home or self-care (01) | DRG 683 ==
LOC: PHED 14:14 → PHEDA 21:41 → PHEDH 02-04 01:41 → PH3A 02-04 09:26
PROVIDERS: ADMIT Specialist; ATTEND Specialist
DX: N17.9 Acute kidney failure, unspecified (principal); E87.2 Acidosis; D76.3 Other histiocytosis syndromes; I95.9 Hypotension, unspecified; E46 Unspecified protein-calorie malnutrition; M32.9 Systemic lupus erythematosus, unspecified; N39.0 Urinary tract infection, site not specified; Z68.1 Body mass index [BMI] 19.9 or less, adult; E86.0 Dehydration; K21.9 Gastro-esophageal reflux disease without esophagitis; I12.9 Hypertensive chronic kidney disease with stage 1 through stage 4 chronic kidney disease, or unspecified chronic kidney disease; N18.9 Chronic kidney disease, unspecified; K82.9 Disease of gallbladder, unspecified; D63.1 Anemia in chronic kidney disease; Z88.1 Allergy status to other antibiotic agents; Z88.2 Allergy status to sulfonamides; Z90.49 Acquired absence of other specified parts of digestive tract; Z92.21 Personal history of antineoplastic chemotherapy; Z93.2 Ileostomy status
CPT/HCPCS: 76937; 80048; 80053; 80076; 81001; 83605; 83735; 85025; 85027; 87040; 87077; 87086; 87186; 87493; 87506; 93005; 96361; 96374; J1644; J2405; J7030; J7121

== ENCOUNTER 2018-04-02 16:00 | Observation (INO) | payer OTHER ==
[2018-04-02] VITALS (11 sets, daily range): BP systolic 141–175; BP diastolic 75–89; PULSE 71–104; RESP 14–17; TEMP 97.8–99.1; O2SAT 99–100
[~2018-04-02] VITALS: Ht 156.2 cm; Wt 42.2 kg
[~2018-04-02 16:00] MED LIST changes: -ACYC400T PO; -ATEN-102 PO; +ATEN50TA PO; +FERR325T PO; -LANS30 PO; +OSPE1TAB PO; +SODI325T PO
[2018-04-02] MEDS ORDERED: SODIUM CHLOR 0.9% 1000 ML INJ 1,000 ML IV SCH (16:33)
[2018-04-02] MEDS ORDERED: SODIUM CHLOR 0.9% 250 ML INJ 250 ML IV ONE ×2 (16:45→18:00)
[2018-04-02] MEDS ORDERED: SODIUM CHLORIDE 0.9% FLUSH 10 ML FLUSH IVF PRN (16:45)
--- NOTE | 2018-04-02 17:15 | PD ---
HPI Chief Complaint: Abnormal Results Time Seen by Provider: 16:25 Travel History International Travel<30 days: No Contact w/Intl Traveler<30days: No Traveled to known affect area: No History of Present Illness HPI 53-year-old female arrives from home following blood work which was done yesterday showing hemoglobin of 6. Dr. Bryan advised her to come in for blood transfusion. The patient also wonders if she might be dehydrated because she is typically dehydrated when she is anemic. Patient has a history of colon cancer and reports an internal pouch prone to bleeding. She describes some dizziness lightheadedness however no chest pain or shortness of breath. PFSH Past Medical History Arthritis: No Autoimmune Disease: Yes (HEMOPHAGOCYTIC LYMPHOHISTIOCYTOSIS) Cancer: No Cardiovascular Problems: No Chemotherapy: Yes (2012) Diminished Hearing: No Endocrine: No Gastrointestinal Disorders: Yes (ULCERATIVE COLITIS, CHROHN'S) GERD: Yes Genitourinary: No Hiatal Hernia: Yes Hypertension: Yes Implanted Vascular Access Dvce: Yes Musculoskeletal: Yes (generalized weakness) Neurologic: No Psychiatric: No Reproductive: No Respiratory: No Renal Failure: Yes Ulcer: Yes Tetanus Vaccination: Unknown Influenza Vaccination: No ?: Not : 1 Para: 1 Past Surgical History Abdominal Surgery: Yes (colon resection 1986) Cardiac Surgery: Yes Ear Surgery: No Eye Surgery: No Gynecologic Surgery: No Neurologic Surgery: Yes Oral Surgery: No Pacemaker: No Thoracic Surgery: Yes Tonsillectomy: Yes Other Surgery: Yes (COLON RESECTION, WITH INTERNAL POUCH) Social History Alcohol Use: Yes (ocaccionally) Tobacco Use: No Substance Use: No Allergies-Medications (Allergen,Severity, Reaction): Coded Allergies: Sulfa (Sulfonamide Antibiotics) (Verified Allergy, Severe, Nausea/Vomiting , 04/02/18) cefaclor (Verified Allergy, Severe, Rash, 04/02/18) ofloxacin (Verified Allergy, Severe, Confusion, 04/02/18) Reported Meds & Prescriptions Reported Meds & Active Scripts Active Reported Atenolol 50 Mg Tab 50 Mg PO HS Review of Systems Except as stated in HPI: all other systems reviewed are Neg Physical Exam Narrative GENERAL: 53-year-old female pleasant well-nourished well-developed Vital Signs Date Time Temp Pulse Resp B/P (MAP) Pulse Ox O2 Delivery O2 Flow Rate FiO2 04/02/18 17:10 15 100 Room Air 5/10/18 16:30 103 16 100 Room Air 04/02/18 16:30 98.0 98 15 154/80 (104) 100 Room Air 04/02/18 16:10 98.5 104 14 153/89 (110) 100 SKIN: Warm and dry. HEAD: Atraumatic. Normocephalic. EYES: Pupils equal and round. No scleral icterus. No injection or drainage. ENT: No nasal bleeding or discharge. Mucous membranes pink and moist. NECK: Trachea midline. No JVD. CARDIOVASCULAR: Regular rate and rhythm. RESPIRATORY: No accessory muscle use. Clear to auscultation. Breath sounds equal bilaterally. GASTROINTESTINAL: Abdomen soft, non-tender, nondistended. Hepatic and splenic margins not palpable. MUSCULOSKELETAL: Extremities without clubbing, cyanosis, or edema. No obvious deformities. NEUROLOGICAL: Awake and alert. No obvious cranial nerve deficits. Motor grossly within normal limits. Five out of 5 muscle strength in the arms and legs. Normal speech. PSYCHIATRIC: Appropriate mood and affect; insight and judgment normal. Data Data Last Documented VS Vital Signs Date Time Temp Pulse Resp B/P (MAP) Pulse Ox O2 Delivery O2 Flow Rate FiO2 04/02/18 17:10 15 100 Room Air 04/02/18 16:30 103 04/02/18 16:30 98.0 Orders Orders Type And Screen (04/02/18 16:33) Red Blood Cells (Rbc) (04/02/18 16:33) Blood Product Administration (04/02/18 16:33) Sodium Chlor 0.9% 250 Ml Inj (Ns 250 Ml (04/02/18 16:45) Basic Metabolic Panel (Bmp) (04/02/18 16:33) Complete Blood Count With Diff (04/02/18 16:33) Ecg Monitoring (04/02/18 16:33) Iv Access Insert/Monitor (04/02/18 16:33) Oximetry (04/02/18 16:33) Sodium Chlor 0.9% 1000 Ml Inj (Ns 1000 M (04/02/18 16:33) Sodium Chloride 0.9% Flush (Ns Flush) (04/02/18 16:45) Place In Observation (04/02/18 ) Vital Signs (Adult) Q4H (04/02/18 17:43) Activity Oob Ad Tg (04/02/18 17:43) Sodium Chloride 0.9% Flush (Ns Flush) (04/02/18 17:45) Sodium Chloride 0.9% Flush (Ns Flush) (04/02/18 21:00) Acetaminophen (Tylenol) (04/02/18 17:45) Scd Bilateral/Knee High JAY JAY.BID (04/02/18 17:43) Naloxone Inj (Narcan Inj) (04/02/18 17:45) Docusate Sodium-Senna (Elizabeth-Colace) (04/02/18 21:00) Magnesium Hydroxide Liq (Milk Of Magnesi (04/02/18 17:45) Sennosides (Senokot) (04/02/18 17:45) Bisacodyl Supp (Dulcolax Supp) (04/02/18 17:45) Lactulose Liq (Lactulose Liq) (04/02/18 17:45) Red Blood Cells (Rbc) (04/02/18 17:43) Blood Product Administration .UPON TRANSFUSION (04/02/18 17:43) Sodium Chlor 0.9% 250 Ml Inj (Ns 250 Ml (04/02/18 17:45) Admit Order (Ed Use Only) (04/02/18 ) Vital Signs (Adult) Q4H (04/02/18 17:44) Diet Heart Healthy (04/02/18 Dinner) Activity Oob With Assistance (04/02/18 17:44) Labs Laboratory Tests Test 04/02/18 16:50 White Blood Count 6.7 TH/MM3 Red Blood Count 2.52 MIL/MM3 Hemoglobin 5.7 GM/DL Hematocrit 17.4 % Mean Corpuscular Volume 69.2 FL Mean Corpuscular Hemoglobin 22.5 PG Mean Corpuscular Hemoglobin Concent 32.5 % Red Cell Distribution Width 17.8 % Platelet Count 235 TH/MM3 Mean Platelet Volume 8.9 FL Neutrophils (%) (Auto) 67.7 % Lymphocytes (%) (Auto) 21.9 % Monocytes (%) (Auto) 7.9 % Eosinophils (%) (Auto) 1.4 % Basophils (%) (Auto) 1.1 % Neutrophils # (Auto) 4.5 TH/MM3 Lymphocytes # (Auto) 1.5 TH/MM3 Monocytes # (Auto) 0.5 TH/MM3 Eosinophils # (Auto) 0.1 TH/MM3 Basophils # (Auto) 0.1 TH/MM3 CBC Comment DIFF FINAL Differential Comment Blood Urea Nitrogen 15 MG/DL Creatinine 1.73 MG/DL Random Glucose 115 MG/DL Calcium Level 8.4 MG/DL Sodium Level 132 MEQ/L Potassium Level 3.3 MEQ/L Chloride Level 100 MEQ/L Carbon Dioxide Level 20.8 MEQ/L Anion Gap 11 MEQ/L Estimat Glomerular Filtration Rate 31 ML/MIN MDM Medical Decision Making Medical Screen Exam Complete: Yes Emergency Medical Condition: Yes Medical Record Reviewed: Yes Differential Diagnosis Anemia, dehydration, hemorrhagic shock Narrative Course CBC & BMP Diagram 04/02/18 16:50 Calcium Level 8.4 L Patient has chronic renal insufficiency such that today's creatinine is considered within acceptable limits and normal for the patient Diagnosis Primary Impression: Anemia Qualified Codes: D64.9 - Anemia, unspecified Additional Impression: CRI (chronic renal insufficiency) Qualified Codes: N18.2 - Chronic kidney disease, stage 2 (mild) Admitting Information Admitting Physician Requests: Observation Osvaldo Ruiz MD April 02, 2018 17:15
[2018-04-02 17:26] LABS: AUTOMATED NEUTROPHIL # 4.5 TH/MM3 (1.8-7.7); BASOPHIL # 0.1 TH/MM3 (0-0.2); BASOPHIL % 1.1 % (0.0-2.0); EOSINOPHIL # 0.1 TH/MM3 (0-0.4); EOSINOPHIL % 1.4 % (0.0-4.0); LYMPH % 21.9 % (9.0-44.0); LYMPHOCYTE # 1.5 TH/MM3 (1.0-4.8); MEAN CELL VOLUME 69.2 FL (80.0-100.0); MEAN CORPUSCULAR HEMOGLOBIN 22.5 PG (27.0-34.0); MEAN CORPUSCULAR HGB CONC 32.5 % (32.0-36.0); MEAN PLATELET VOLUME 8.9 FL (7.0-11.0); MONO % 7.9 % (0.0-8.0); MONOCYTE # 0.5 TH/MM3 (0-0.9); NEUT % 67.7 % (16.0-70.0); PLATELET COUNT 235 TH/MM3 (150-450); RED BLOOD COUNT 2.52 MIL/MM3 (4.00-5.30); RED CELL DISTRIBUTION WIDTH 17.8 % (11.6-17.2); WHITE BLOOD COUNT 6.7 TH/MM3 (4.0-11.0)
[2018-04-02 17:33] LABS: HEMATOCRIT 17.4 % (35.0-46.0); HEMOGLOBIN 5.7 GM/DL (11.6-15.3)
[2018-04-02] MEDS ORDERED: LACTULOSE SYRUP 20 GM/30 ML CUP PO PRN (17:45)
[2018-04-02] MEDS ORDERED: SODIUM CHLORIDE 0.9% FLUSH 10 ML FLUSH IV FLUSH PRN (17:45)
[2018-04-02] MEDS ORDERED: ACETAMINOPHEN 325 MG TAB PO PRN (17:45)
[2018-04-02] MEDS ORDERED: MAGNESIUM HYDROXIDE SUSP 30 ML CUP PO PRN (17:45)
[2018-04-02] MEDS ORDERED: SENNOSIDES 8.6 MG TAB PO PRN (17:45)
[2018-04-02] MEDS ORDERED: BISACODYL 10 MG SUPP RECTAL PRN (17:45)
[2018-04-02] MEDS ORDERED: NALOXONE HCL 0.4 MG/ML AMP IV PUSH PRN (17:45)
[2018-04-02 17:55] LABS: BICARBONATE 20.8 MEQ/L (21.0-32.0); CALCIUM 8.4 MG/DL (8.5-10.1); CREATININE 1.73 MG/DL (0.50-1.00)
[2018-04-02] MEDS: SODIUM CHLORIDE 0.9% FLUSH 10 ML FLUSH IV FLUSH SCH (19:37)
[2018-04-02] MEDS: DOCUSATE SODIUM 50 MG/SENNA 8.6 MG TAB PO SCH (20:11)
--- NOTE | 2018-04-02 22:01 | HHI.HP ---
HPI Service [facility] Primary Care Physician Benigno Bryan DO Admission Diagnosis Anemia Diagnoses: Chief Complaint: weakness, low blood count Travel History International Travel<30 Days: No Contact w/Intl Traveler <30 Da: No Traveled to Known Affected Are: No History of Present Illness 53 y/o female with a history of anemia, hemophagocytic lymphohistiocytosis s/p chemo, colitis, and HTN was sent to the ED by her PCP for a blood transfusion. Patient has had a colon resection with an internal pouch and states on Friday she began to have some bleeding, she says it does happen from time to time. She thinks she may have lifted something heavy while helping her daughter move. She states it stopped on Friday and she followed up with her PCP for lab work because she was feeling week and was found to have a hgb of 6. Upon admission her hgb was 5.7. Her only complaint is fatigue. No chest pain or sob. Review of Systems Except as stated in HPI: all other systems reviewed are Neg Past Family Social History Past Medical History anemia hemophagocytic lymphohistiocytosis s/p chemo colitis HTN Past Surgical History Colon resection with an internal pouch Tonsillectomy Reported Medications Reported Meds & Active Scripts Active Reported Atenolol 50 Mg Tab 50 Mg PO HS Allergies: Coded Allergies: Sulfa (Sulfonamide Antibiotics) (Verified Allergy, Severe, Nausea/Vomiting , 04/02/18) cefaclor (Verified Allergy, Severe, Rash, 04/02/18) ofloxacin (Verified Allergy, Severe, Confusion, 04/02/18) Active Ordered Medications Current Medications Medications (Trade) Dose Ordered Sig/Butch Route Start Time Stop Time Status Last Admin (NS Flush) 2 ml UNSCH PRN IV FLUSH 04/02/18 17:45 (NS Flush) 2 ml BID IV FLUSH 04/02/18 21:00 (Tylenol) 650 mg Q4H PRN PO 04/02/18 17:45 (Narcan Inj) 0.4 mg UNSCH PRN IV PUSH 04/02/18 17:45 (Elizabeth-Colace) 1 tab BID PO 04/02/18 21:00 (Milk Of Magnesia Liq) 30 ml Q12H PRN PO 04/02/18 17:45 (Senokot) 17.2 mg Q12H PRN PO 04/02/18 17:45 (Dulcolax Supp) 10 mg DAILY PRN RECTAL 04/02/18 17:45 (Lactulose Liq) 30 ml DAILY PRN PO 04/02/18 17:45 Sodium Chloride 250 ml @ 15 mls/hr ONCE ONCE IV 04/02/18 18:00 04/03/18 10:39 04/02/18 18:17 Family History Mom: DM Dad: DM, PE Grandma: Breast Cancer Social History Tobacco use: Denies Alcohol use: occasionally Physical Exam Vital Signs Vital Signs Date Time Temp Pulse Resp B/P (MAP) Pulse Ox O2 Delivery O2 Flow Rate FiO2 04/02/18 21:53 98.6 99 16 163/75 100 04/02/18 20:57 98.7 93 16 152/78 (102) 100 04/02/18 18:55 97.8 76 17 150/81 (104) 100 04/02/18 18:34 97.9 92 16 150/81 100 04/02/18 18:19 98.1 93 17 158/76 100 04/02/18 18:02 98.0 85 14 175/86 (115) 100 Room Air 04/02/18 17:10 15 100 Room Air 04/02/18 16:30 103 16 100 Room Air 04/02/18 16:30 98.0 98 15 154/80 (104) 100 Room Air 04/02/18 16:10 98.5 104 14 153/89 (110) 100 Physical Exam GENERAL: This is a well-nourished, well-developed patient, in no apparent distress. SKIN: No rashes, ecchymoses or lesions. Cool and dry. EYES: Pupils equal round and reactive. Extraocular motions intact. No scleral icterus. No injection or drainage. ENT: Nose without bleeding, purulent drainage or septal hematoma. Airway patent. CARDIOVASCULAR: Regular rate and rhythm without murmurs, gallops, or rubs. RESPIRATORY: Clear to auscultation. Breath sounds equal bilaterally. No wheezes , rales, or rhonchi. GASTROINTESTINAL: Abdomen soft, non-tender, nondistended. No hepato-splenomegaly , or palpable masses. MUSCULOSKELETAL: Extremities without clubbing, cyanosis, or edema. No joint tenderness, effusion, or edema noted. No calf tenderness. NEUROLOGICAL: Awake and alert. Normal speech. Laboratory Laboratory Tests Test 04/02/18 16:50 White Blood Count 6.7 Red Blood Count 2.52 Hemoglobin 5.7 Hematocrit 17.4 Mean Corpuscular Volume 69.2 Mean Corpuscular Hemoglobin 22.5 Mean Corpuscular Hemoglobin Concent 32.5 Red Cell Distribution Width 17.8 Platelet Count 235 Mean Platelet Volume 8.9 Neutrophils (%) (Auto) 67.7 Lymphocytes (%) (Auto) 21.9 Monocytes (%) (Auto) 7.9 Eosinophils (%) (Auto) 1.4 Basophils (%) (Auto) 1.1 Neutrophils # (Auto) 4.5 Lymphocytes # (Auto) 1.5 Monocytes # (Auto) 0.5 Eosinophils # (Auto) 0.1 Basophils # (Auto) 0.1 CBC Comment DIFF FINAL Differential Comment Blood Urea Nitrogen 15 Creatinine 1.73 Random Glucose 115 Calcium Level 8.4 Sodium Level 132 Potassium Level 3.3 Chloride Level 100 Carbon Dioxide Level 20.8 Anion Gap 11 Estimat Glomerular Filtration Rate 31 Result Diagram: 04/02/18 1650 04/02/18 165 Caprini VTE Risk Assessment Caprini VTE Risk Assessment: No/Low Risk (score <= 1) Caprini Risk Assessment Model Point Value = 1 Point Value = 2 Point Value = 3 Point Value = 5 Age 41-60 Minor surgery BMI > 25 kg/m2 Swollen legs Varicose veins or History of unexplained or recurrent spontaneous Oral contraceptives or hormone replacement Sepsis (< 1 month) Serious lung disease, including pneumonia (< 1 month) Abnormal pulmonary function Acute myocardial infarction Congestive heart failure (< 1 month) History of inflammatory bowel disease Medical patient at bed rest Age 61-74 Arthroscopic surgery Major open surgery (> 45 min) Laparoscopic surgery (> 45 min) Malignancy Confined to bed (> 72 hours) Immobilizing plaster cast Central venous access Age >= 75 History of VTE Family history of VTE Factor V Leiden Prothrombin [id number] Lupus anticoagulant Anticardiolipin antibodies Elevated serum homocysteine Heparin-induced thrombocytopenia Other congenital or acquired thrombophilia Stroke (< 1 month) Elective arthroplasty Hip, pelvis, or leg fracture Acute spinal cord injury (< 1 month) Prophylaxis Regimen Total Risk Factor Score Risk Level Prophylaxis Regimen 0-1 Low Early ambulation 2 Moderate Order ONE of the following: *Sequential Compression Device (SCD) *Heparin 5000 units SQ BID 3-4 Higher Order ONE of the following medications: *Heparin 5000 units SQ TID *Enoxaparin/Lovenox 40 mg SQ daily (WT < 150 kg, CrCl > 30 mL/min) *Enoxaparin/Lovenox 30 mg SQ daily (WT < 150 kg, CrCl > 10-29 mL/min) *Enoxaparin/Lovenox 30 mg SQ BID (WT < 150 kg, CrCl > 30 mL/min) AND/OR *Sequential Compression Device (SCD) 5 or more Highest Order ONE of the following medications: *Heparin 5000 units SQ TID (Preferred with Epidurals) *Enoxaparin/Lovenox 40 mg SQ daily (WT < 150 kg, CrCl > 30 mL/min) *Enoxaparin/Lovenox 30 mg SQ daily (WT < 150 kg, CrCl > 10-29 mL/min) *Enoxaparin/Lovenox 30 mg SQ BID (WT < 150 kg, CrCl > 30 mL/min) AND *Sequential Compression Device (SCD) Assessment and Plan Assessment and Plan 53 y/o female with a history of anemia, hemophagocytic lymphohistiocytosis s/p chemo, colitis, and HTN was sent to the ED by her PCP for a blood transfusion. Anemia, acute, hgb 5.7, secondary to internal pouch bleeding that has now resolved -Transfuse 2 units prbcs -CBC in AM HTN, chronic -Resume home atenolol -Monitor vitals DVT prophylaxis: SCDs Patient is admitted to RDU, follow up HGB in am, once stabilized patient can be discharged. Discussed Condition With Patient, Mili Drew April 02, 2018 22:01
[2018-04-02] MEDS ORDERED: ATENOLOL 50 MG TAB PO SCH (22:15)
[2018-04-03 03:41] VITALS: BP 125/75; PULSE 68; RESP 16; TEMP 98; O2SAT 98
[2018-04-03 07:22] LABS: AUTOMATED NEUTROPHIL # 3.5 TH/MM3 (1.8-7.7); BASOPHIL % 0.5 % (0.0-2.0); EOSINOPHIL # 0.2 TH/MM3 (0-0.4); EOSINOPHIL % 2.9 % (0.0-4.0); HEMOGLOBIN 8.5 GM/DL (11.6-15.3); LYMPH % 26.4 % (9.0-44.0); LYMPHOCYTE # 1.6 TH/MM3 (1.0-4.8); MEAN CELL VOLUME 72.6 FL (80.0-100.0); MEAN CORPUSCULAR HEMOGLOBIN 23.8 PG (27.0-34.0); MEAN CORPUSCULAR HGB CONC 32.9 % (32.0-36.0); MEAN PLATELET VOLUME 8.2 FL (7.0-11.0); MONO % 10.7 % (0.0-8.0); MONOCYTE # 0.6 TH/MM3 (0-0.9); NEUT % 59.5 % (16.0-70.0); PLATELET COUNT 192 TH/MM3 (150-450); RED BLOOD COUNT 3.58 MIL/MM3 (4.00-5.30); RED CELL DISTRIBUTION WIDTH 18.5 % (11.6-17.2); WHITE BLOOD COUNT 5.9 TH/MM3 (4.0-11.0)
[2018-04-03 07:54] LABS: BICARBONATE 19.2 MEQ/L (21.0-32.0); CALCIUM 7.9 MG/DL (8.5-10.1); CREATININE 1.55 MG/DL (0.50-1.00)
[2018-04-03 08:16] VITALS: BP 122/66; PULSE 62; RESP 20; TEMP 98.2; O2SAT 95
[2018-04-03] MEDS: SODIUM CHLORIDE 0.9% FLUSH 10 ML FLUSH IV FLUSH SCH (09:00)
[2018-04-03] MEDS: DOCUSATE SODIUM 50 MG/SENNA 8.6 MG TAB PO SCH (09:00)
--- NOTE | 2018-04-03 09:12 | HHI.DCPOC ---
Discharge Care Plan Diagnosis: (1) CRI (chronic renal insufficiency) (2) Anemia Additional Problems Anemia Goals to Promote Your Health * To prevent worsening of your condition and complications * To maintain your health at the optimal level Directions to Meet Your Goals Take your medications as prescribed Follow your dietary instruction Follow activity as directed Keep your appointments as scheduled Take your immunizations and boosters as scheduled If your symptoms worsen call your PCP, if no PCP go to Urgent Care Center or Emergency Room Smoking is Dangerous to Your Health. Avoid second hand smoke Call the 24-hour hour crisis hotline for domestic abuse at [place] April 03, 2018 09:12
--- NOTE | 2018-04-03 10:13 | HHI.PR ---
Subjective Remarks Follow-up anemia of acute blood loss April 03, 2018-patient seen and examined, she was transfused 2 units with improvement of H&H. Denies any dizziness. Vital stable. Objective Vitals Vital Signs Date Time Temp Pulse Resp B/P (MAP) Pulse Ox O2 Delivery O2 Flow Rate FiO2 04/03/18 08:16 98.2 62 20 122/66 (84) 95 04/03/18 03:41 98.0 68 16 125/75 (92) 98 04/02/18 23:44 99.1 71 16 141/83 (102) 99 04/02/18 22:18 98.1 87 16 168/83 100 04/02/18 21:53 98.6 99 16 163/75 100 04/02/18 20:57 98.7 93 16 152/78 (102) 100 04/02/18 18:55 97.8 76 17 150/81 (104) 100 04/02/18 18:34 97.9 92 16 150/81 100 04/02/18 18:19 98.1 93 17 158/76 100 04/02/18 18:02 98.0 85 14 175/86 (115) 100 Room Air 04/02/18 17:10 15 100 Room Air 04/02/18 16:30 103 16 100 Room Air 04/02/18 16:30 98.0 98 15 154/80 (104) 100 Room Air 04/02/18 16:10 98.5 104 14 153/89 (110) 100 I/O 04/02/18 04/02/18 04/02/18 04/03/18 04/03/18 04/03/18 07:00 15:00 23:00 07:00 15:00 23:00 Intake Total 1415 ml 390 ml Balance 1415 ml 390 ml Intake IV Total 1000 ml Packed Cells 400 ml 380 ml Blood Product IV Normal Saline Flush 15 ml 10 ml Result Diagram: 04/03/18 0653 04/03/18 0653 Objective Remarks GENERAL: NAD SKIN: Warm and dry. HEAD: Normocephalic. EYES: No scleral icterus. No injection or drainage. NECK: Supple, trachea midline. No JVD or lymphadenopathy. CARDIOVASCULAR: Regular rate and rhythm without murmurs, gallops, or rubs. RESPIRATORY: Breath sounds equal bilaterally. No accessory muscle use. GASTROINTESTINAL: Abdomen soft, non-tender, nondistended. MUSCULOSKELETAL: No cyanosis, or edema. BACK: Nontender without obvious deformity. No CVA tenderness. Procedures none A/P Problem List: (1) Microcytic normochromic anemia ICD Code: D50.9 - Iron deficiency anemia, unspecified Assessment and Plan 53 y/o female with a history of anemia, hemophagocytic lymphohistiocytosis s/p chemo, colitis, and HTN was sent to the ED by her PCP for a blood transfusion. Anemia, acute, hgb 5.7, secondary to internal pouch bleeding that has now resolved -Transfused 2 units prbcs -Hg improves to 8.5 HTN, chronic -Continue home atenolol -Monitor vitals DVT prophylaxis: SCDs Discharge Planning Discharge patient to home Condition on discharge: Improved Regular Diet as tolerated Ad Tg activity Rx written:none Follow-up with primary care physician in 1 week Laci Ellison MD April 03, 2018 10:13
== END 2018-04-03 10:21 | disposition home or self-care (01) ==
LOC: NEPE 16:00 → NEDA 17:46 → INTOOBSV 17:46 → NEPHCDU 19:01
PROVIDERS: ADMIT Hospitalist; ATTEND Hospitalist
DX: D62 Acute posthemorrhagic anemia (principal); D76.1 Hemophagocytic lymphohistiocytosis; N18.2 Chronic kidney disease, stage 2 (mild); D50.9 Iron deficiency anemia, unspecified; I12.9 Hypertensive chronic kidney disease with stage 1 through stage 4 chronic kidney disease, or unspecified chronic kidney disease; Z90.49 Acquired absence of other specified parts of digestive tract; Z92.21 Personal history of antineoplastic chemotherapy; K51.90 Ulcerative colitis, unspecified, without complications
CPT/HCPCS: 36430; 80048; 85025; 86850; 86900; 86901; 86920; 86922; 96360; 96361; 99285; G0378; J7030; J7050; P9016